=== PATIENT | female | born 1935 | race Caucasian/White ===

== ENCOUNTER 2017-08-29 12:33 | Observation (INO) | payer MEDICARE, OTHER ==
[~2017-08-29] VITALS: Ht 170.2 cm; Wt 81.6 kg
[~2017-08-29 12:33] MED LIST: AMLODIPINE BESYL5 MG PO; ATORVASTATIN CA20 MG PO; BENADRYL25 MG PO; BENZTROPINE ME0.5 MG PO; BISOPROLOL FUMAR5 MG PO; BUPROPION XL300 MG PO; CALCIUM600 M1 PO; CLONIDINE HCL0.1 MG PO; DOXYCYCLINE HY100 MG PO; FUROSEMIDE20 MG PO; FUROSEMIDE40 MG PO; HALOPERIDOL1 MG PO; HYDROCODONE-AP1 EAC1 PO; HYDROXYZINE HCL25 MG PO; KLOR-CON M2020 MEQ PO; LEVOTHYROXINE25 MCG PO; LIDODERM PATCH1 EA TD; LISINOPRIL10 MG PO; LOVENOX80 MG/0.8 SQ; NITROGLYCERIN SL; NITROGLYCERIN0.4 MG SL; PANTOPRAZOLE SO40 MG PO; POTASSIUM CHLO10 ME1 PO; QUETIAPINE FUMA25 MG PO; QUETIAPINE FUMA50 MG PO; SERTRALINE HCL50 MG PO; TEMAZEPAM15 MG PO; ULTRAM 50MG50 MG PO; WARFARIN SODIUM3 MG PO; Z BISOPROLOL HCT PO; Z CARBIDOPA LEVO PO; Z MELATONIN PO; Z.0.AMITRIPTYLINE H5 PO; Z.0.AMLODIPINE BESYL PO; Z.0.BENTYL20 MG PO; Z.0.CATAPRES0.1 MG PO; Z.0.COLACE100 MG PO; Z.0.LASIX40 MG; Z.0.PRAVASTATIN SOD8 PO; Z.0.RANITIDINE HCL30; Z.0.RESTORIL15 MG PO; ZEBETA10 MG PO; ZITHROMAX1 GM; [UNRECOGNIZED DRUG - OTHER]; [UNRECOGNIZED DRUG - OTHER] PO; [UNRECOGNIZED DRUG - OTHER] PO; [UNRECOGNIZED DRUG - OTHER] PO; [UNRECOGNIZED DRUG - OTHER] TD; l-thyroxine
[2017-08-29] MEDS ORDERED: SODIUM CHLORIDE 0.9% 500ML 500 ML IV STA (13:06)
--- NOTE | 2017-08-29 14:13 | Diagnostic Imaging Report ---
Examination: CT BRAIN WITHOUT CONTRAST History:Change in mental status. Comparison studies:Brain MRI performed July 07, 2015 at [facility]. Technique: Axial images were obtained from the skull base to the vertex. Coronal and sagittal images reconstructed from the axial data. Intravenous contrast: None Findings: Scalp: No abnormalities. Bones: No fractures, blastic or lytic lesions. Brain sulci: Mild volume loss for age. Ventricles: No hydrocephalus. Extra-axial space: No abnormalities. Parenchyma: Cortical-based area of encephalomalacia is demonstrated in the right superior parietal lobule and postcentral gyrus. No masses or hemorrhage. There are mild confluent areas of hypoattenuation in the periventricular and subcortical white matter, nonspecific. There are cortical-based areas of hypoattenuation involving the bilateral mid cerebellum. Sellar/suprasellar region: No abnormalities. Craniocervical junction: Patent foramen magnum. No Chiari one malformation. Incidental findings: Atherosclerotic calcification of the cavernous and supraclinoid internal carotid and V4 segments of the bilateral vertebral arteries.. Impression: 1. No new acute intracranial abnormality. No change from prior brain MRI performed July 07, 2015 when accounting for differences in technique. 2. 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 3. Unchanged mild chronic microvascular ischemic change and volume loss. Signed by: Dr. Kassi Beaulieu M.D. on 08/29/2017 2:10 PM
[2017-08-29 15:19] LABS: BASOPHILS # (AUTO) 0.1 (0.0-0.1); BASOPHILS % 1.1 % (0.0-1.0); BILIRUBIN,URINE NEGATIVE (NEGATIVE); CLARITY,URINE CLEAR (CLEAR); COLOR,URINE YELLOW (YELLOW); EOSINOPHILS # (AUTO) 0.4 (0.0-0.4); EOSINOPHILS % 6.1 % (0.0-6.0); HEMATOCRIT 35.6 % (34.2-44.1); HEMOGLOBIN 11.6 g/dL (12.0-16.0); KETONES,URINE NEGATIVE (NEGATIVE); LEUKOCYTE ESTERASE ,URINE NEGATIVE (NEGATIVE); LYMPHOCYTES # (AUTO) 1.9 (1.0-3.2); LYMPHOCYTES % 29.2 % (18.0-39.1); MEAN CORPUSCULAR HEMOGLOBIN 29.4 pg (28-32); MEAN CORPUSCULAR HGB CONC 32.6 g/dL (31-35); MEAN CORPUSCULAR VOLUME 90.4 fL (81-99); MONOCYTES # (AUTO) 0.6 (0.2-0.8); MONOCYTES % 9.6 % (4.4-11.3); NEUTROPHILS # (AUTO) 3.5 (2.1-6.9); NEUTROPHILS % 53.8 % (38.7-80.0); NITRITE,URINE NEGATIVE (NEGATIVE); PLATELET COUNT 231 x10e3/uL (140-360); PROTEIN,URINE DIPSTICK NEGATIVE (NEGATIVE); RED BLOOD COUNT 3.94 x10e6/uL (3.6-5.1); RED CELL DISTRIBUTION WIDTH 12.7 % (11.7-14.4); URINE UROBILINOGEN 0.2 mg/dL (0.2 - 1)
[2017-08-29 15:24] LABS: BACTERIA,URINE RARE /HPF; EPITHELIAL CELLS,URINE FEW /LPF; WBC,URINE (MAN) 0-5 /HPF (0-5)
[2017-08-29 15:26] LABS: INR 1.43; PROTHROMBIN TIME 18.2 seconds (11.9-14.5)
[2017-08-29 15:27] LABS: PARTIAL THROMBOPLASTIN TIME 28.4 seconds (23.8-35.5)
[2017-08-29 15:40] LABS: B-TYPE NATRIURETIC PEPTIDE2 202.3 pg/mL (0-100)
[2017-08-29] MEDS ORDERED: SODIUM CHLORIDE FLUSH 10 ML SYR INJ PRN (16:15)
[2017-08-29] MEDS ORDERED: ASPIRIN 81 MG CHEW TAB PO ONE (16:15)
[2017-08-29] MEDS ORDERED: ONDANSETRON HCL INJ 2 MG/ML VIAL IV PRN (16:15)
[2017-08-29 16:51] LABS: ALBUMIN 3.2 g/dL (3.5-5.0); ALBUMIN/GLOBULIN RATIO 0.8 (0.8-2.0); CALCIUM 8.5 mg/dL (8.4-10.2); CHOL/HDL RATIO 4.4 (3.0-3.6); CREATININE, SERUM 2.36 mg/dL (0.57-1.11); MAGNESIUM 2.2 MG/DL (1.3-2.1)
[2017-08-29 17:10] LABS: CREATINE KINASE MB 1.2 ng/mL (0.00-5.00); THYROID STIMULATING HORMONE 2.002 uIU/mL (0.350-4.940)
--- NOTE | 2017-08-29 17:18 | Diagnostic Imaging Report ---
PROCEDURE: A single AP view of the chest. COMPARISON: Chest x-ray 11/13/2015. INDICATIONS: ALTERED MENTAL STATUS FINDINGS: Lines/tubes: None. Lungs: Lungs are well inflated. Bilateral peribronchial cuffing. Pleura: There is no pleural effusion or pneumothorax. Heart and mediastinum: The heart and the mediastinum are unremarkable. Atherosclerotic calcifications in aorta. Bones: No acute bony abnormality. IMPRESSION: Peribronchial cuffing bilaterally, likely viral etiology or reactive airway. Dictated by: Nick Alvarez M.D. on 08/29/2017 at 17:27 Electronically approved by: Nick Alvarez M.D. on 08/29/2017 at 17:27
[2017-08-29] MEDS ORDERED: DICYCLOMINE HCL10 MG (17:31)
[2017-08-29] MEDS ORDERED: FUROSEMIDE20 MG PO (17:31)
[2017-08-29] MEDS ORDERED: DEXEDRINE10 MG (17:31)
[2017-08-29] MEDS ORDERED: MELATONIN3 MG PO (17:31)
[2017-08-29] MEDS ORDERED: WARFARIN SODIUM1 MG PO (17:31)
[2017-08-29] MEDS ORDERED: BENADRYL25 M1 PO (17:31)
[2017-08-29] MEDS ORDERED: SODIUM CHLORIDE 0.9% 500ML 500 ML ONE (17:39)
[2017-08-29 18:02] VITALS: BP 130/63
--- NOTE | 2017-08-29 18:37 | Diagnostic Imaging Report ---
Examination: MRI BRAIN WITHOUT CONTRAST History: Left facial droop. Comparison studies: Head CT performed earlier today. Brain MR performed July 07, 2015 [facility]. Technique: Sagittal T2; axial DWI, FLAIR, GRE or SWI, T1, Coronal FLAIR. Intravenous contrast: None Findings: Scalp: No abnormal signal. No masses. Bone marrow: Normal in signal intensity. Brain volume: Mild volume loss for age. Ventricles: No hydrocephalus. Extra-axial spaces: No abnormalities. Parenchyma: There are patchy and confluent areas of T2/FLAIR hyperintensity in the periventricular and subcortical white matter, nonspecific. Cortical-based area of encephalomalacia involving the bilateral mid cerebellar hemispheres and right superior parietal lobule and postcentral gyrus. No masses, hemorrhage, or acute vascular insults. Suprasellar and sellar region: No abnormalities. Craniocervical junction: No abnormalities. The foramen magnum is patent. No Chiari malformations. Vessels: Normal flow-voids in the arteries and sinuses. Additional findings:Mild inflammatory mucosal thickening of the left maxillary sinus. IMPRESSION: 1. No new acute intracranial abnormality, specifically, no acute infarct. No change from prior brain MRI performed July 07, 2015. 2. 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 3. Unchanged mild chronic microvascular ischemic change and volume loss. Signed by: Dr. Kassi Beaulieu M.D. on 08/29/2017 6:33 PM
[2017-08-29 20:00] VITALS: BP 121/57
[2017-08-29 21:08] VITALS: BP 111/68
[2017-08-29] MEDS ORDERED: HYDROXYZINE HCL 25 MG TAB PO PRN (23:15)
[2017-08-29] MEDS ORDERED: DICYCLOMINE HCL 10 MG CAP PO PRN (23:15)
[2017-08-29] MEDS ORDERED: TRAMADOL HCL 50 MG TAB PO PRN (23:15)
[2017-08-29] MEDS ORDERED: DIPHENHYDRAMINE HCL 25 MG CAP PO PRN (23:15)
[2017-08-29] MEDS ORDERED: MELATONIN 3 MG TAB PO SCH (23:32)
[2017-08-29] MEDS ORDERED: ATORVASTATIN 20 MG TAB PO SCH (23:32)
[2017-08-29] MEDS ORDERED: SERTRALINE HCL 50 MG TAB PO SCH (23:32)
[2017-08-29] MEDS ORDERED: TEMAZEPAM 15 MG CAP PO SCH (23:33)
[2017-08-29] MEDS ORDERED: QUETIAPINE FUMARATE 25 MG TAB PO SCH (23:33)
[2017-08-30] VITALS: BP 116/57
[2017-08-30 00:58] LABS: CREATINE KINASE MB 0.8 ng/mL (0.00-5.00)
[2017-08-30 04:00] VITALS: BP 98/54
[2017-08-30] MEDS ORDERED: LEVOTHYROXINE SODIUM 25 MCG TABLET PO SCH (06:00)
[2017-08-30 07:35] LABS: BASOPHILS # (AUTO) 0.1 (0.0-0.1); BASOPHILS % 0.9 % (0.0-1.0); EOSINOPHILS # (AUTO) 0.3 (0.0-0.4); EOSINOPHILS % 4.9 % (0.0-6.0); HEMOGLOBIN 11.8 g/dL (12.0-16.0); LYMPHOCYTES # (AUTO) 1.8 (1.0-3.2); LYMPHOCYTES % 26.2 % (18.0-39.1); MEAN CORPUSCULAR HEMOGLOBIN 29.1 pg (28-32); MEAN CORPUSCULAR HGB CONC 32.8 g/dL (31-35); MEAN CORPUSCULAR VOLUME 88.9 fL (81-99); MONOCYTES # (AUTO) 0.6 (0.2-0.8); MONOCYTES % 7.9 % (4.4-11.3); NEUTROPHILS # (AUTO) 4.2 (2.1-6.9); NEUTROPHILS % 59.8 % (38.7-80.0); PLATELET COUNT 237 x10e3/uL (140-360); RED BLOOD COUNT 4.05 x10e6/uL (3.6-5.1); RED CELL DISTRIBUTION WIDTH 12.5 % (11.7-14.4)
[2017-08-30 07:43] LABS: ALBUMIN/GLOBULIN RATIO 0.9 (0.8-2.0); ANION GAP 12.1 mmol/L (8-16); CALCIUM 8.2 mg/dL (8.4-10.2); CREATININE, SERUM 2.06 mg/dL (0.57-1.11); POTASSIUM 4.1 mmol/L (3.5-5.1)
[2017-08-30 08:02] LABS: CREATINE KINASE MB 0.8 ng/mL (0.00-5.00)
[2017-08-30 08:13] VITALS: BP 118/61
[2017-08-30] MEDS ORDERED: LISINOPRIL 10 MG TAB PO SCH (09:00)
[2017-08-30] MEDS ORDERED: FUROSEMIDE 20 MG TAB PO SCH (09:00)
[2017-08-30] MEDS ORDERED: BISOPROLOL FUMARATE 10 MG TAB PO SCH (09:00)
[2017-08-30] MEDS ORDERED: AMLODIPINE BESYLATE 5 MG TAB PO SCH (09:00)
[2017-08-30] MEDS ORDERED: POTASSIUM CHLORIDE 10 MEQ TABCR PO SCH (09:00)
[2017-08-30] MEDS ORDERED: ASPIRIN 81 MG ENTERIC COATED PO SCH (09:00)
[2017-08-30] MEDS ORDERED: CLONIDINE HCL 0.1 MG TAB PO SCH (09:00)
[2017-08-30] MEDS ORDERED: PANTOPRAZOLE SOD 40 MG TABEC PO SCH (09:00)
[2017-08-30 12:00] VITALS: BP 101/53
--- NOTE | 2017-08-30 13:10 | Consultation ---
DATE OF CONSULTATION: August 30, 2017, at 12 p.m. NEUROLOGICAL CONSULTATION ATTENDING PHYSICIAN: Jose Antonio Ferrer MD REASON FOR CONSULTATION: TIA. This 81-year-old female has a history of hypertension and hyperlipidemia. Apparently she was at home. She was brought to the hospital because of sudden onset of some slurred speech and some left facial weakness. At the present time, she is doing fine. No headache. No dizziness. No visual disturbance. No speech and no swallowing difficulty. No focal paresthesia. No focal weakness. PAST HISTORY 1. Hypertension. 2. Previous history of TIA. 3. Hyperlipidemia. 4. Restless legs syndrome. SURGICAL HISTORY: Cholecystectomy. ALLERGIES: NONE KNOWN. SOCIAL HISTORY: Noncontributory. FAMILY HISTORY: Noncontributory. REVIEW OF SYSTEMS: All 12 steps negative, except for what is described above. PHYSICAL EXAMINATION GENERAL: The patient is 81 years of age, weighing 180 pounds. VITAL SIGNS: Blood pressure today is 118/61, pulse 52, temperature 97.2. LUNGS: Clear to auscultation. HEART: Regular sinus rhythm. No murmur. ABDOMEN: No tenderness. No organomegaly. MUSCULOSKELETAL: Lower extremities have no edema and no clubbing. No back or neck pain. NEUROLOGIC EXAMINATION MENTAL STATUS: The patient is alert. She is oriented times 3. She has some short-term memory. She follows commands well. Right and left orientation is normal. CRANIAL NERVES: Pupils are both equal and reactive. The extraocular movements are full. Visual curran on confrontation are grossly normal. No facial weakness. Tongue protrudes in the midline. MOTOR POWER: The patient is able to move arms and legs without any difficulty. MUSCLE STRENGTH: Upper extremities: Abduction of shoulders 5/5. Flexion and extension of both arms 5/5. Dorsiflexion of both wrists 5/5. Finger extension 5/5. Hand electronics engineering manager 5/5 bilaterally. Lower extremities: Proximal and distal muscles 5/5. DEEP TENDON REFLEXES: Triceps, biceps and radials are 1+. Knee jerks 1+. Ankle jerks absent bilaterally. Plantar stimulation is down bilaterally. COORDINATION: [id number] is normal. HEAD: Normocephalic. NECK: Supple. Carotid pulsations are present bilaterally. There are no bruits. LABORATORY WORKUP: CBC shows a white count 6900 with hemoglobin 11.8, hematocrit 36, platelets 237,000. Chemistries: Sodium, potassium and chloride were all normal. BUN elevated at 42 and creatinine 2.2, elevated. Estimated GFR 20. Liver enzymes are all normal. Triglycerides 149, total cholesterol 144. TSH is normal. Influenza A and B AG negative. Urinalysis is negative. MRI of the brain shows no acute pathology. There are chronic ischemic changes in the territory of the cerebellar arteries bilaterally and also chronic small vessel disease seen bilaterally. There is no evidence of acute ischemic or hemorrhagic lesion. IMPRESSION 1. Transient ischemic attack. 2. Hypertension. 3. Kidney insufficiency. 4. Restless legs syndrome. The patient is doing quite well now. The patient will be discharged from a neuro point of view. Job#: [id number]
[2017-08-30 16:54] VITALS: BP 140/61
[2017-08-30] MEDS ORDERED: WARFARIN SOD 1 MG TAB PO SCH (17:00)
[2017-08-30] MEDS ORDERED: ATORVASTATIN 20 MG TAB PO SCH (21:00)
[2017-08-30] MEDS ORDERED: SERTRALINE HCL 50 MG TAB PO SCH (21:00)
[2017-08-30] MEDS ORDERED: MELATONIN 3 MG TAB PO SCH (21:00)
[2017-08-30] MEDS ORDERED: TEMAZEPAM 15 MG CAP PO SCH (21:00)
[2017-08-30] MEDS ORDERED: QUETIAPINE FUMARATE 25 MG TAB PO SCH (21:00)
--- NOTE | 2017-08-31 21:35 | Cardiology Report ---
DATE OF STUDY: ATTENDING PHYSICIAN: Dr. Jazlyn Holguin An 81-year-old female. ECHOCARDIOGRAM M-MODE: Normal sequence. SECTOR SCAN: Normal sequence. CARDIAC DOPPLER STUDY WITH COLOR: Trace mitral and tricuspid regurgitation. CONCLUSIONS 1. Left ventricular ejection fraction is approximately 55%. 2. Trace mitral and tricuspid regurgitation probably not clinically significant. Job#: [id number] CQ cc:JAZLYN HOLGUIN MD
--- NOTE | 2017-10-17 14:41 | Discharge Summary ---
CHIEF COMPLAINT: Change in mental status. FINAL DIAGNOSES: 1. Transient ischemic attack. 2. Atrial fibrillation. 3. Hypertension. DISPOSITION: Home. An 81-year-old female with known history of hypertension, atrial fib, mild dementia, brought to the ER with a sudden onset of drooping of face, slurred speech. No dizziness. No chest pains. No shortness of breath. Symptoms resolved themselves by the time arrival to the ER. Patient was reviewed and evaluated in the ER, and following evaluation, studies, other diagnostic studies, admission was made for treatment for slurred speech, facial droop, questionable TIA, atrial fib, hypertension, early dementia. Will begin IV fluids. Will be requesting a neuro follow. Home medications will continue. With admission, patient was undergoing a neurology follow with Dr. Calero for possible TIA presentation, and following his review of the patient, evaluating data and x-rays; his impression was transient ischemic attack, hypertension, kidney insufficiency, and restless leg syndrome. States that the patient is doing quite well at the time of his evaluation. Patient will be cleared for discharge. Patient underwent short care stay at medical-surg floor, on cardiac diet, resting comfortably. She began with aspirin 81 mg daily, IV fluids. Daily medications were being continued as well. Laboratory studies were showing stable electrolytes. Kidney functions, BUN 42, creatinine 2.06, glucose 88. CBC stable. Patient's MRI and CT scan of the brain were showing no acute insult. She was cleared for discharge, released on August 30, 2017 in stable condition. EKG showed sinus bradycardia with a first-degree AV block, followed with an echocardiogram showing ejection fraction between 50% to 55%, no evidence of pericardial effusion. Patient was able to be discharged home. Will continue on a cardiac diet. DISCHARGE MEDICATIONS: No new medications were written. Patient will continue on the daily medications of: 1. Amlodipine besylate 5 mg daily. 2. Atorvastatin calcium 20 mg daily. 3. Bisoprolol fumarate 10 mg daily. 4. Clonidine 0.1 mg daily. 5. Dexedrine as needed. 6. Dicyclomine 10 mg as needed. 7. Benadryl 25 mg 1 tablet at bedtime needed for allergy. 8. Furosemide 20 mg 1 tablet daily. 9. Hydroxyzine 25 mg 3 times a day as needed for itching. 10. Levothyroxine 25 mcg daily. 11. Lisinopril 10 mg daily. 12. Melatonin 5 mg at bedtime. 13. Protonix 40 mg daily. 14. Potassium chloride 10 mEq daily. 15. Quetiapine fumarate 50 mg at bedtime. 16. Sertraline 100 mg at bedtime. 17. Temazepam 15 mg 2 tablets at bedtime. 18. Ultram 50 mg one every 4 hours as needed for pain. FOLLOWUP: She will be following up with me in my office within 7 to 10 days. Calling my office sooner if she has any recurrence or any other difficulties. Dictated By: RITU Winslow Job#: [id number]
== END 2017-08-30 18:47 | disposition home or self-care (01) ==
LOC: ER 12:50 → ERHOLD 17:18 → MED/SURG 17:19
DX: G45.9 Transient cerebral ischemic attack, unspecified (principal); R47.81 Slurred speech; R29.810 Facial weakness; I48.91 Unspecified atrial fibrillation; Z79.01 Long term (current) use of anticoagulants; I10 Essential (primary) hypertension; E78.5 Hyperlipidemia, unspecified; N28.9 Disorder of kidney and ureter, unspecified; G25.81 Restless legs syndrome; Z86.73 Personal history of transient ischemic attack (TIA), and cerebral infarction without residual deficits; Z88.8 Allergy status to other drugs, medicaments and biological substances; Z88.5 Allergy status to narcotic agent; Z91.041 Radiographic dye allergy status
CPT/HCPCS: 36415 ×2; 70450; 70551; 71045; 80053 ×2; 80061; 81001; 82550 ×2; 82553 ×2; 83605; 83690; 83735; 83880; 84443; 84484 ×2; 85025 ×2; 85610; 85730; 87040; 87086; 87400; 93005; 93306; 99284; G0378 ×2; J7040

== ENCOUNTER → 2018-05-31 | Day surgery (SDC) | payer MEDICARE, OTHER ==
[~2018-05-31] MED LIST changes: +BENADRYL25 M1 PO; +COUMADIN3 MG PO; +DEXEDRINE10 MG; +DICYCLOMINE HCL10 MG PO; +DOXEPIN HCL25 MG PO; +EPHEDRINE SULFATE INJ 50 MG/10 ML SYR ONE; +HYOSCYAMINE SULFATE 0.5 MG/ML INJ ONE; +LIDOCAINE HCL 2% LOCAL INJ 5 ML SDV VIAL INJ ONE; +MELATONIN3 MG PO; +PROPOFOL IV EMULSION 10 MG/ML 50 ML VIAL ONE; +WARFARIN SODIUM1 MG PO
--- OUTSIDE RECORDS SUMMARY | 2018-05-31 12:04 | XMS REPORT ---
Author Author [facility] Address Unknown Phone Unavailable Care Team Providers Care Artificial Pearl Maker Name Role Phone WESTLEY FERRER Unavailable Unavailable Problems This patient has no known problems. Allergies, Adverse Reactions, Alerts This patient has no known allergies or adverse reactions. Medications This patient has no known medications. Results Test Description Test Time Test Comments Text Results Atomic Results Result Comments MRI BRAIN WO [address] [address] Patient Name: GENEVA CHA MR #: [id number] : 1935 Age/Sex: 81/F Req #: [id number] Adm Physician: WESTLEY FERRER MD Ordered by: PIO PEREYRA MD Report #: [id number] Location: MED/SURG Room/Bed: [facility] Procedure: [id number] MRI/MRI BRAIN WO Exam Date: 08/29/17 Exam Time: 1630 REPORT STATUS: Signed Examination: MRI BRAIN WITHOUT CONTRAST History: Left facial droop. Comparison studies: Head CT performed earlier today. Brain MR performed July 07, 2015 [facility]. Technique: Sagittal T2; axial DWI, FLAIR, GRE or SWI, T1, Coronal FLAIR. Intravenous contrast: None Findings: Scalp: No abnormal signal. No masses. Bone marrow: Normal in signal intensity. Brain volume: Mild volume loss for age. Ventricles: No hydrocephalus. Extra-axial spaces: No abnormalities. Parenchyma: There are patchy and confluent areas of T2/FLAIR hyperintensity in the periventricular and subcortical white matter, nonspecific. Cortical- based area of encephalomalacia involving the bilateral mid cerebellar hemispheres and right superior parietal lobule and postcentral gyrus. No masses, hemorrhage, or acute vascular insults. Suprasellar and sellar region: No abnormalities. Craniocervical junction: No abnormalities. The foramen magnum is patent. No Chiari malformations. Vessels: Normal flow- voids in the arteries and sinuses. Additional findings:Mild inflammatory mucosal thickening of the left maxillary sinus. IMPRESSION: 1. No new acute intracranial abnormality, specifically, no acute infarct. No change from prior brain MRI performed July 07, 2015. 2. 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 3. Unchanged mild chronic microvascular ischemic change and volume loss. Signed by: Dr. Kassi Beaulieu M.D. on 08/29/2017 6:33 PM Dictated By: KASSI SALDAÑA MD 32 Transcribed By: MICHELLE on 08/29/171832 COPY TO: PIO PEREYRA MD ECHO COMPLETE (ECHOCARDIOGRAM) [place] [address] Patient Name : GENEVA CHA MR #: [id number] : 1935 Age/Sex: 82/F Adm Physician : WESTLEY FERRER MD Admit Date : 08/29/17 Location : MED/SURG Room/Bed : [facility] REPORT: Cardiology Report DATE OF STUDY: August 30, 2017 ATTENDING PHYSICIAN: Dr. Jazlyn Ferrer An 81-year-old female. ECHOCARDIOGRAM M-MODE: Normal sequence. SECTOR SCAN: Normal sequence. CARDIAC DOPPLER STUDY WITH COLOR: Trace mitral and tricuspid regurgitation. CONCLUSIONS 1. Left ventricular ejection fraction is approximately 55%. 2. Trace mitral and tricuspid regurgitation probably not clinically significant. Job#: [id number] CQ cc: JAZLYN FERRER MD Signature Date Dictated By: LEIGHA LUEVANO MD Transcribed By: SMEDS on 08/31/17 <Electronically signed by LEIGHA LUEVANO MD><<Signature on File>>11/04/17 1113 COPY TO: CT BRAIN WO [place] [address] Patient Name: GENEVA CHA MR #: [id number] : 1935 Age/Sex: 81/F Req #: [id number] Adm Physician: Ordered by: PIO PEREYRA MD Report #: [id number] Location: ER Room/Bed: Procedure: [id number] CT/CT BRAIN WO Exam Date: 08/29/17 Exam Time: 1310 REPORT STATUS: Signed Examination: CT BRAIN WITHOUT CONTRAST History:Change in mental status. Comparison studies:Brain MRI performed July 07, 2015 at [facility]. Technique: Axial images were obtained from the skull base to the vertex. Coronal and sagittal images reconstructed from the axial data. Intravenous contrast: None Findings: Scalp: No abnormalities. Bones: No fractures, blastic or lytic lesions. Brain sulci: Mild volume loss for age. Ventricles: No hydrocephalus. Extra-axial space: No abnormalities. Parenchyma: Cortical-based area of encephalomalacia is demonstrated in the right superior parietal lobule and postcentral gyrus. No masses or hemorrhage. There are mild confluent areas of hypoattenuation in the periventricular and subcortical white matter, nonspecific. There are cortical-based areas of hypoattenuation involving the bilateral mid cerebellum. Sellar/suprasellar region: No abnormalities. Craniocervical junction: Patent foramen magnum. No Chiari one malformation. Incidental findings: Atherosclerotic calcification of the cavernous and supraclinoid internal carotid and V4 segments of the bilateral vertebral arteries.. Impression: 1. No new acute intracranial abnormality. No change from prior brain MRI performed July 07, 2015 when accounting for differences in technique. 2. Unchanged chronic infarcts of the bilateral posterior infe rior cerebellar artery territories and right anterior cerebral artery territory. 3. Unchanged mild chronic microvascular ischemic change and volume loss. Signed by: Dr. Kassi Beaulieu M.D. on 08/29/2017 2:10 PM Dictated By: KASSI SALDAÑA MD 1410 Transcribed By: MICHELLE on 08/29/17 1410 COPY TO: PIO PEREYRA MD CHEST SINGLE (PORTABLE) [place] [address] Patient Name: GENEVA CHA MR #: [id number] : 1935 Age/Sex: 81/F Req #: [id number] Adm Physician: WESTLEY FERRER MD Ordered by: PIO PEREYRA MD Report #: [id number] Location: [facility] Room/Bed: [place] [address] Procedure: [id number] DX/CHEST SINGLE (PORTABLE) Exam Date: 08/29/17 Exam Time: 1230 REPORT STATUS: Signed PROCEDURE: A single AP view of the chest. COMPARISON: Chest x-ray 11/13/2015. INDICATIONS: ALTERED MENTAL STATUS FINDINGS: Lines/tubes: None. Lungs: Lungs are well inflated. Bilateral peribronchial cuffing. Pleura: There is no pleural effusion or pneumothorax. Heart and mediastinum: The heart and the mediastinum are unremarkable. Atherosclerotic calcifications in aorta. Bones: No acute bony abnormality. IMPRESSION: Peribronchial cuffing bilaterally, likely viral etiology or reactive airway. Dictated by: Lisandro Byers M.D. on 08/29/2017 at 17:27 Electronically approved by: Lisandro Byers M.D. on 08/29/2017 at 17:27 Dictated By: LISANDRO BYERS MD 26 Transcribed By: DARYN on 08/29/171726 COPY TO: PIO PEREYRA MD
[2018-05-31 12:48] LABS: BASOPHILS # (AUTO) 0.1 (0.0-0.1); BASOPHILS % 1.4 % (0.0-1.0); EOSINOPHILS # (AUTO) 0.2 (0.0-0.4); EOSINOPHILS % 3.4 % (0.0-6.0); HEMATOCRIT 39.3 % (34.2-44.1); LYMPHOCYTES # (AUTO) 1.6 (1.0-3.2); LYMPHOCYTES % 24.8 % (18.0-39.1); MEAN CORPUSCULAR HGB CONC 33.1 g/dL (31-35); MEAN CORPUSCULAR VOLUME 87.5 fL (81-99); MONOCYTES # (AUTO) 0.5 (0.2-0.8); MONOCYTES % 6.9 % (4.4-11.3); NEUTROPHILS # (AUTO) 4.1 (2.1-6.9); NEUTROPHILS % 63.3 % (38.7-80.0); PLATELET COUNT 297 x10e3/uL (140-360); RED BLOOD COUNT 4.49 x10e6/uL (3.6-5.1); RED CELL DISTRIBUTION WIDTH 13.6 % (11.7-14.4)
[2018-05-31 12:58] LABS: INR 1.01; PROTHROMBIN TIME 14.2 seconds (11.9-14.5)
[2018-05-31 12:59] LABS: PARTIAL THROMBOPLASTIN TIME 23.8 seconds (23.8-35.5)
--- NOTE | 2018-05-31 15:34 | Operative Report ---
DATE OF PROCEDURE: May 31, 2018 REFERRING PHYSICIAN: Dr. Jazlyn Holguin. PROCEDURES PERFORMED: 1. Esophagogastroduodenoscopy with biopsies. 2. Colonoscopy with polypectomy. INDICATIONS FOR ESOPHAGOGASTRODUODENOSCOPY: Upper abdominal pain, melena. INDICATIONS FOR COLONOSCOPY: History of bright red blood per rectum, history of colon polyps. MEDICATION: Patient was done under MAC. Please see anesthesiologist's note. PROCEDURE: With the patient in the left lateral decubitus position, the flexible fiberoptic Olympus gastroscope was introduced into the esophagus under direct visualization without any difficulty. There was some patchy erythema noted in the distal esophagus. A minute nodule was noted just above the GE junction, and that was removed per the cold biopsy forceps. The scope was then advanced with ease into the stomach, traversing a small sliding hiatal hernia. Mucosa overlying the antrum revealed some patchy areas of erythema and low-grade to moderate edema, and biopsies were obtained. Multiple minute hyperplastic-appearing polyps were noted in the body of the stomach. Some were partially excised with the cold biopsy forceps. Pylorus appeared to be of normal contour and shape, was intubated with ease, and the scope was advanced all the way to the 2nd portion of the duodenum. The scope was then withdrawn slowly. Mucosa overlying the proximal 2nd portion and the duodenal bulb appeared to be within normal limits. The scope was then withdrawn back into the stomach and retroflexed, and mucosa overlying the fundus and the cardia appeared to be within normal limits. The scope was then straightened out. The stomach was decompressed. The scope was subsequently withdrawn. Patient tolerated the procedure well. IMPRESSION: 1. Distal esophagitis, mild. 2. Minute nodule, distal esophagus, removed per cold biopsy forceps. 3. Small sliding hiatal hernia. 4. Gastritis biopsied. Biopsies sent to stain for H. pylori. 5. Gastric polyps, body, some partially excised with the cold biopsy forceps. PLAN: Follow up histology. Increase Protonix to 40 mg 1 p.o. a.c. b.i.d. Patient was then turned around and after adequate lubrication of the anal canal, a flexible fiberoptic Olympus colonoscope was inserted into the rectum with ease and advanced all the way to the cecum. It was then withdrawn slowly. Mucosa overlying the cecum, ascending, transverse and descending appeared to be within normal limits. Diverticular disease was noted to involve the distal descending and the sigmoid colon. One polyp was snared from the sigmoid colon, and the polypectomy site was hemoclipped. One polyp was hot biopsied from the rectum. The scope was then retroflexed into the distal rectum. Small internal hemorrhoids were noted, none of which was actively bleeding. The scope was then straightened out. It was subsequently withdrawn. Patient tolerated the procedure well. IMPRESSION: 1. Diverticulosis. 2. Sigmoid colon polyp snared and polypectomy site hemoclipped. 3. Rectal polyp hot biopsied. 4. Small internal hemorrhoids, none actively bleeding. PLAN: Follow up histology. Initiate high-fiber low-fat diet. Initiate high-fiber supplement. Start VSL#3 one p.o. daily. Job#: [id number] EV cc:JAZLYN HOLGUIN MD
[2018-05-31 15:45] VITALS: BP 125/60
== END | disposition home or self-care (01) ==
LOC: OR 12:01
PROVIDERS: ATTEND Internal Medicine Gastroenterology
DX: K29.70 Gastritis, unspecified, without bleeding (principal); D12.4 Benign neoplasm of descending colon; K62.1 Rectal polyp; K31.7 Polyp of stomach and duodenum; K21.0 Gastro-esophageal reflux disease with esophagitis; K44.9 Diaphragmatic hernia without obstruction or gangrene; K57.30 Diverticulosis of large intestine without perforation or abscess without bleeding; K64.8 Other hemorrhoids; I10 Essential (primary) hypertension; R05 Cough; K21.9 Gastro-esophageal reflux disease without esophagitis; R00.1 Bradycardia, unspecified; I44.0 Atrioventricular block, first degree; F41.9 Anxiety disorder, unspecified; F32.9 Major depressive disorder, single episode, unspecified; Z88.6 Allergy status to analgesic agent; Z91.041 Radiographic dye allergy status; Z88.8 Allergy status to other drugs, medicaments and biological substances; Z91.09 Other allergy status, other than to drugs and biological substances; Z79.01 Long term (current) use of anticoagulants; Z86.73 Personal history of transient ischemic attack (TIA), and cerebral infarction without residual deficits; Z86.718 Personal history of other venous thrombosis and embolism; Z86.711 Personal history of pulmonary embolism
CPT/HCPCS: 36415; 43239; 45384; 45385; 85025; 85610; 85730; 88305; 88312; 93005; J1980; J2001; 45378

== ENCOUNTER → 2018-09-13 | Outpatient (CLI) | payer MEDICARE, OTHER ==
[~2018-09-13] MED LIST changes: -EPHEDRINE SULFATE INJ 50 MG/10 ML SYR ONE; -HYOSCYAMINE SULFATE 0.5 MG/ML INJ ONE; -LIDOCAINE HCL 2% LOCAL INJ 5 ML SDV VIAL INJ ONE; -PROPOFOL IV EMULSION 10 MG/ML 50 ML VIAL ONE
--- NOTE | 2018-09-13 15:57 | Diagnostic Imaging Report ---
EXAM: BONE MINERAL DENSITY HISTORY: Bone mineralization evaluation COMPARISON: None DISCUSSION: Evaluation of the left hip and lumbar spine was performed utilizing DEXA Hologic bone densitometer. The study is technically adequate. Left hip femoral neck bone mineral density: 0.63 g/cm2, T-score is -2.0, Z-score is 0.4. Left hip total bone mineral density: 0.75 g/cm2, T-score is -1.6, Z-score is 0.6. Lumbar spine total bone mineral density: 1.51 gm/cm2, T-score is 4.2, Z-score is 7.0. Artificially increased due to degenerative disc disease. Impression: Bone mineralization by WHO Classification is low bone mass/osteopenia, the fracture risk is increased. Signed by: Dr. Erasto Post M.D. on 09/13/2018 3:54 PM
== END ==
LOC: MAMMO 12:22
DX: Z12.31 Encounter for screening mammogram for malignant neoplasm of breast (principal); M81.0 Age-related osteoporosis without current pathological fracture
CPT/HCPCS: 77067; 77080

== ENCOUNTER → 2018-12-06 | Outpatient (CLI) | payer MEDICARE, OTHER ==
--- NOTE | 2018-12-06 13:20 | Diagnostic Imaging Report ---
EXAM: CT Abdomen and Pelvis WITHOUT contrast INDICATION: CKD stage IV, right back pain. COMPARISON: Renal ultrasound 11/19/2018. Report from CT abdomen/pelvis dated 08/01/2010, although the images are not available for review. TECHNIQUE: Abdomen and pelvis were scanned utilizing a multidetector helical scanner from the lung base to the pubic symphysis without administration of IV contrast. Absence of intravenous contrast decreases sensitivity for detection of focal lesions and vascular pathology. Coronal and sagittal reformations were obtained. Routine protocol was performed. IV CONTRAST: None. ORAL CONTRAST: None. RADIATION DOSE: Total DLP: 700.9 mGy*cm Dose modulation, iterative reconstruction, and/or weight based adjustment of the mA/kV was utilized to reduce the radiation dose to as low as reasonably achievable. COMPLICATIONS: None FINDINGS: LINES and TUBES: None. LOWER THORAX: There is a calcified granuloma in the right middle lobe. There are tree-in-bud opacities with mild bronchial wall thickening and focal bronchiectasis in the right middle lobe and lingula. There are also tree-in-bud opacities within the left lower lobe. There is a calcified granuloma in the right lower lobe. HEPATOBILIARY: Subcentimeter hepatic hypodensities are too small to characterize, but likely represent cysts. Calcified hepatic granulomas. No biliary ductal dilation. GALLBLADDER: Status post cholecystectomy. SPLEEN: No splenomegaly. Calcified splenic granulomas. PANCREAS: No focal masses or ductal dilatation. ADRENALS: No adrenal nodules KIDNEYS/URETERS: No hydronephrosis. No evidence of solid mass. Simple appearing bilateral renal cysts. Indeterminant 1.5 cm right midpole renal hypodensity (series 3, image 63; 26 HU). No stones. GI TRACT: No abnormal distention, wall thickening, or evidence of bowel obstruction. There is sigmoid colonic diverticulosis without CT evidence of diverticulitis. Appendix is not clearly identified. There is however no fat stranding or adenopathy in the right lower quadrant to suggest appendicitis. PELVIC ORGANS/BLADDER: Limited evaluation secondary to streak artifact from right hip hardware. LYMPH NODES: No lymphadenopathy. VESSELS: There are moderate atherosclerotic calcifications in the aorta and branch vessels. PERITONEUM / RETROPERITONEUM: No free air or fluid. BONES/SOFT TISSUES Partially seen right total hip arthroplasty. No acute osseous abnormality. No suspicious lytic or blastic lesions. IMPRESSION: No acute CT findings in the abdomen or pelvis. Findings of chronic granulomatous disease in the lower lungs. Indeterminate right mid pole renal hypodense lesion. Suggest renal protocol CT or MRI for further evaluation. Signed by: Dr. Enid Rose MD on 12/06/2018 1:17 PM
== END ==
LOC: CT 11:19
PROVIDERS: ATTEND Internal Medicine Nephrology
DX: N18.4 Chronic kidney disease, stage 4 (severe) (principal)
CPT/HCPCS: 74176

== ENCOUNTER → 2023-01-09 | Outpatient (CLI) | payer MEDICARE, OTHER | LOC: RAD 11:46 | PROVIDERS: ATTEND Internal Medicine | DX: M25.551 Pain in right hip (principal) ==